=== PATIENT | female | born 1955 | race Caucasian/White ===

== ENCOUNTER → 2019-04-24 | Outpatient (CLI) | payer OTHER | END | disposition home or self-care (01) | LOC: OIH 13:20 | PROVIDERS: ATTEND Internal Medicine Cardiovascular Disease | DX: Z13.6 Encounter for screening for cardiovascular disorders (principal) | CPT/HCPCS: 75571 ==

== ENCOUNTER → 2019-05-08 | Outpatient (CLI) | payer BC | END | disposition home or self-care (01) | LOC: SHCH 12:48 → EDUNIT# 13:00 | PROVIDERS: ATTEND Internal Medicine Cardiovascular Disease | DX: I00 Rheumatic fever without heart involvement (principal) | CPT/HCPCS: 93306; 93356 ==